=== PATIENT | male | born 1985 | race Caucasian/White ===

== ENCOUNTER 2019-06-13 09:12 | Emergency (ER) | payer OTHER ==
[~2019-06-13] VITALS: Ht 172.7 cm; Wt 77.1 kg
[~2019-06-13 09:12] MED LIST: CEPH500 PO; CRUTCH USE; HYDACE5 PO; IBUP600 PO; METO10 PO; NAPR250 PO; OXYACE5T PO; OXYC5 PO; Percocet 5-3251 EACH PO
== END 2019-06-13 10:19 | disposition home or self-care (01) ==
LOC: ER 09:12
DX: J98.8 Other specified respiratory disorders (principal); B34.9 Viral infection, unspecified; F17.200 Nicotine dependence, unspecified, uncomplicated
CPT/HCPCS: 99283; U0002

== ENCOUNTER 2022-09-25 18:29 | Emergency (ER) | payer OTHER ==
[~2022-09-25] VITALS: Ht 175.3 cm; Wt 74.8 kg
[2022-09-25 19:09] VITALS: BP 120/83
== END 2022-09-25 19:41 | disposition home or self-care (01) ==
LOC: ER 18:29
DX: S90.02XA Contusion of left ankle, initial encounter (principal); S90.32XA Contusion of left foot, initial encounter; X50.1XXA Overexertion from prolonged static or awkward postures, initial encounter; Z88.0 Allergy status to penicillin; Z79.899 Other long term (current) drug therapy
CPT/HCPCS: 73610